=== PATIENT | male | born 1965 | race Caucasian/White ===

== ENCOUNTER → 2023-04-22 13:21 | Outpatient (CLI) | payer BC, SELFPAY ==
--- NOTE | ~2023-04-22 | US_ITS ---
EXAMINATION: US thyroid DATE: 04/22/2023 13:38 INDICATION: Nontoxic goiter. TECHNIQUE: Multiple ultrasound images of the thyroid were obtained. COMPARISON: None. FINDINGS: The right thyroid lobe measures 4.8 x 1.6 x 1.5 cm. The left thyroid lobe measures 4.1 x 1.5 x 1.4 c m. In the right thyroid lobe, there is a 4 mm nodule. In the left thyroid lobe, there is a 9 mm oleksandr d, hypoechoic, wider than tall nodule with smooth margin without echogenic foci (TI-RADS TR4). In the left thyroid lobe, there is a 7 mm solid, hypoechoic, wider than tall nodule with ill-defined margin without echogenic foci (TR4). In the left thyroid lobe, there is a 6 mm solid, hypoechoic, wider jocy n tall nodule with smooth margin without echogenic foci (TR4). IMPRESSION: 1. Small thyroid nodules, likely not clinically significant. No follow-up is needed. Reviewed, dictated and finalized at location A. IMPRESSION: 1. Small thyroid nodules, likely not clinically significant. No follow-up is ne eded.
== END ==
DX: E04.2 Nontoxic multinodular goiter (principal)
CPT/HCPCS: 76536